=== PATIENT | female | born 1950 | race Caucasian/White ===

== ENCOUNTER → 2019-08-26 | Outpatient (CLI) | payer OTHER, SELFPAY ==
[2019-08-26 09:38] VITALS: BMI 24.7
[2019-08-26 12:38] LABS: Anion Gap 4 (5-15); BUN 17 mg/dL (7-18); BUN/Creat Ratio 19.3 RATIO (10-20); Calcium,Total 9.6 mg/dL (8.5-10.1); Chloride 104 mmol/L (98-107); Creatinine, Serum 0.88 mg/dL (0.55-1.02); EST Glomerular Filtration Rate 68 mL/min (>60); Est Glom Filt Rate - Afr Amer 82 mL/min (>60); Glucose 90 mg/dL (74-106); Potassium 4.8 mmol/L (3.5-5.1); Sodium Level 136 mmol/L (136-145)
[2019-08-26 12:40] LABS: Absolute Lymphocyte Count 1.98 X10^3/uL (0.83-4.51); Absolute Neutrophil Count 3.3 X10^3/uL (2.0-7.7); Basophil# 0.03 X10^3/uL; Basophil% 0.5 % (0-1); Eosinophil# 0.16 X10^3/uL; Eosinophils% 2.7 % (0-5); Hematocrit 36.6 % (37-47); Hemoglobin 11.8 g/dL (12.0-15.0); Lymphocyte # 1.98 X10^3/ul (4.0); Lymphocyte % 32.8 % (19-41); Mean Corp Hgb Conc 32.2 g/dL (32-36); Mean Corpuscular Hgb 29.7 pg (27.0-32.0); Mean Corpuscular Volume 92.2 fL (81-99); Mean Platelet Vol. 9.2 fl (6.2-12.0); Monocyte# 0.55 X10^3/uL; Monocyte% 9.1 % (0-10); NRBC Flagged by Analyzer 0 % (0-5); Neutrophil % 54.7 % (47-70); Platelet Count 280 K/mm3 (150-450); RBC Distribution Width CV 14.3 % (11.6-14.6); RBC Distribution Width SD 48.9 fl (35.1-43.9); Red Blood Count 3.97 M/mm3 (4.2-5.4)
== END | disposition home or self-care (01) ==
LOC: POLAB3 10:23
PROVIDERS: Family Provider Family Medicine; PCP Family Medicine; Visit Provider Physician Assistant Medical
DX: I10 Essential (primary) hypertension (principal); I34.1 Nonrheumatic mitral (valve) prolapse
CPT/HCPCS: 36415; 80048; 85025

== ENCOUNTER → 2019-09-28 10:56 | Outpatient (CLI) | payer SELFPAY, OTHER ==
[2019-08-26 09:38] VITALS: BMI 24.7
--- NOTE | 2019-09-28 10:59 | ECHOD_ITS ---
Reason For Study: MVP Procedure This was a 2D Doppler, Color Flow transthoracic echocardiogram. Exam performed in department. Left Ventricle Normal LV size. Left ventricular systolic function is normal. The estimated ejection fraction is 60 %. Stage 1 diastolic dysfunction. No regional wall motion abnormalities noted. Right Ventricle Normal RV size. Normal systolic function. Atria Normal left atrium. Normal right atrium. Mitral Valve Normal mitral valve. Tricuspid Valve Normal tricuspid valve. Mild (1+) tricuspid valve insufficiency. Pulmonary artery systolic pressure is 27 mmHg. Aortic Valve Trisinus/trileaflet aortic valve. Mild (1+) aortic valve insufficiency. Pulmonic Valve Normal pulmonic valve. Great Vessels Normal aortic root. The pulmonary artery is normal size. Normal inferior vena cava. Pericardium/Pleural No pericardial effusion. MMode/2D Measurements & Calculations LVIDd: 3.8 cm IVSd: 0.81 cm LA dimension: 2.8 cm LVIDs: 2.5 cm LVPWd: 1.1 cm RVDd: 3.8 cm FS: 34.4 % LAV(MOD-bp): 32.4 ml LA A4 area: 13.6 cm2 RA A4 area: 13.5 cm2 LAV(MOD-bp) Indexed: 19.0 ml/m2 LAV(MOD-sp2): 35.4 ml LAV(MOD-sp4): 29.0 ml Time Measurements MV dec time: 0.23 sec Doppler Measurements & Calculations MV E max nuno: 50.7 cm/sec Lat Peak E' Nuno: 8.8 cm/sec Med Peak E' Nuno: 7.7 cm/sec MV A max nuno: 79.8 cm/sec E/E' lat: 5.8 E/E' med: 6.6 MV E/A: 0.64 MV V2 max: 80.9 cm/sec MV P1/2t max nuno: 55.5 cm/sec Ao V2 max: 97.9 cm/sec MV max P.6 mmHg MV P1/2t: 87.1 msec Ao max P.8 mmHg MV V2 mean: 42.5 cm/sec MV dec slope: 186.7 cm/sec2 MV mean P.84 mmHg MVA(P1/2t): 2.5 cm2 MV V2 VTI: 16.8 cm AI max nuno: 410.6 cm/sec LV V1 max: 74.4 cm/sec PA V2 max: 75.1 cm/sec AI max P.5 mmHg LV V1 max P.2 mmHg AI dec slope: 200.8 cm/sec2 AI P1/2t: 598.8 msec TR max nuno: 242.0 cm/sec TR max P.4 mmHg Interpretation Summary Normal LV size. Left ventricular systolic function is normal. The estimated ejection fraction is 60 %. Stage 1 diastolic dysfunction. Normal mitral valve. Mild (1+) tricuspid valve insufficiency. Ordering Physician: Emi Lopez Referring Physician: Emi Lopez Performed By: Andrea Calderón RCS
== END ==
PROVIDERS: Family Provider Family Medicine; PCP Family Medicine; Referring Provider Physician Assistant Medical; Visit Provider Physician Assistant Medical
DX: I10 Essential (primary) hypertension (principal); I34.1 Nonrheumatic mitral (valve) prolapse
CPT/HCPCS: 93306

== ENCOUNTER → 2022-11-15 | Outpatient (CLI) | payer OTHER, SELFPAY ==
[2022-11-21 19:40] LABS: HPV APTIMA, High Risk Negative (Negative)
== END | disposition home or self-care (01) ==
LOC: LABSPEC 13:38
PROVIDERS: PCP Family Medicine; Referring Provider Obstetrics & Gynecology; Visit Provider Obstetrics & Gynecology
DX: Z12.4 Encounter for screening for malignant neoplasm of cervix (principal)
CPT/HCPCS: 87624; 88175; G0145

== ENCOUNTER → 2023-12-26 | Outpatient (CLI) | payer SELFPAY, OTHER ==
--- NOTE | 2023-12-26 09:05 | RAD_ITS ---
HISTORY: PAINFUL RIGHT HIP. TECHNIQUE: XR Hips Bilateral with Pelvis when performed; Min 5 Views. COMPARISON: None. FINDINGS: OSSEOUS STRUCTURES: No acute displaced fracture identified. Note that overlapping bowel shadows may obscure osseous detail. Mineralization unremarkable. JOINT SPACES: No dislocation. Mild degenerative changes of the hips. RAD/Hips B/L min 2 views w/ Pelvis IMPRESSION: No acute displaced fracture or dislocation identified. Electronically Signed: Janeen Sands MD at 9:02 EST ,
--- OUTSIDE RECORDS SUMMARY | 2023-12-26 09:33 | XMS RPT_ITS | CCD ---
Author Name Unknown Address [facility] [address] [place] [id number] Organization [facility] Care Team Providers Care Laboratory Clerk Name Role Phone Devendra Massey MD Unavailable Medications Current Medications Medication Drug Class(es) Dates Sig (Normalized) Sig (Original) aspirin 81 mg delayed release oral tablet (1 source) Platelet Aggregation Inhibitor, Nonsteroidal Anti-inflammatory Drug Start: 11-28-2021 End: 12-28-2021 take 1 tablet by mouth twice daily ASPIRIN EC 81 MG TBEC Take 1 tablet by mouth twice a day as directed aspirin [id number] Devendra Massey MD celecoxib 100 mg oral capsule (2 sources) Nonsteroidal Anti-inflammatory Drug Start: 01-24-2022 End: 02-07-2022 take 1 capsule by mouth twice daily as needed for pain CELECOXIB 100 MG CAPS Take 1 capsule by mouth twice a day as needed for pain celecoxib [id number] Devendra Massey MD Completed/Discontinued Medications Medication Drug Class(es) Dates Sig (Normalized) Sig (Original) losartan potassium 100 mg oral tablet (3 sources) Angiotensin 2 Receptor Clement Start: 01-01-2021 take 1 tablet by mouth once daily LOSARTAN POTASSIUM 100 MG TABS 1 tablet by mouth once a day losartan [id number] Nancy Ramirez AT Problems Active Problems Problem Classification Problem Date Documented Date Episodic/Chronic Complications of surgical procedures or medical care (1 source) Stitch abscess; Translations: [Infection following a procedure, superficial incisional surgical site, initial encounter] Onset: 01-24-2022 01-24-2022 Episodic Osteoarthritis (3 sources) Osteoarthritis of left knee joint; Translations: [Unilateral primary osteoarthritis, left knee] Onset: 01-08-2021 01-08-2021 Chronic Other connective tissue disease (3 sources) History of total knee arthroplasty; Translations: [Presence of left artificial knee joint] Onset: 11-28-2021 11-28-2021 Chronic Past or Other Problems Problem Classification Problem Date Documented Da te Episodic/Chronic Unclassified (3 sources) Problem Results Test Name Value Interpretation Reference Range Facil ity Vital Signs Date Time Vital Sign Value Performing Clinician Facility NEGATED: Highlighted [id number] 15:35-0400 Body height 157.48 cm Nancy Ashley AT [facility] Work Phone: NEGATED: Highlighted [id number] 15:35-0400 Body height 157 cm Nancy Ashley AT [facility] Work Phone: NEGATED: Highlighted [id number] 15:35-0400 Body mass index (BMI) [Ratio] 26.07 kg/m2 Nancy Ashley AT [facility] Work Phone: NEGATED: Highlighted [id number] 15:35-0400 Body weight 64.41 kg Nancy Ashley AT [facility] Work Phone: NEGATED: Highlighted [id number] 15:35-0400 Body weight 65 kg Nancy Ashley AT [facility] Work Phone: NEGATED: Highlighted [id number] 13:00-0400 Body height 157.48 cm Nancy Ashley AT [facility] Work Phone: NEGATED: Highlighted [id number] 13:00-0400 Body height 157 cm Nancy Ashley AT [facility] Work Phone: NEGATED: Highlighted [id number] 13:00-0400 Body mass index (BMI) [Ratio] 26.07 kg/m2 Nancy Ashley AT [facility] Work Phone: NEGATED: Highlighted [id number] 13:00-0400 Body weight 64.41 kg Nancy Ashley AT [facility] Work Phone: NEGATED: Highlighted [id number] 13:00-0400 Body weight 65 kg Nancy Ashley AT [facility] Work Phone: NEGATED: Highlighted [id number] 09:19-0500 Body height 157.48 cm Katina [employer] FI[employer] TECHNICIAN [facility] Work Phone: NEGATED: Highlighted [id number] 09:19-0500 Body height 157 cm Katina [employer] FI[employer] TECHNICIAN [facility] Work Phone: NEGATED: Highlighted [id number] 09:19-0500 Body mass index (BMI) [Ratio] 26.07 kg/m2 Katina [employer] FI[employer] TECHNICIAN [facility] Work Phone: NEGATED: Highlighted [id number] 09:19-0500 Body temperature 98.2 [degF] Katina [employer] FI[employer] TECHNICIAN [facility] Work Phone: NEGATED: Highlighted [id number] 09:19-0500 Body temperature 98.24 [degF] Katina [employer] FI[employer] TECHNICIAN [facility] Work Phone: NEGATED: Highlighted [id number] 09:19-0500 Body weight 64.41 kg Katina [employer] FI[employer] TECHNICIAN [facility] Work Phone: NEGATED: Highlighted [id number] 09:19-0500 Body weight 65 kg Katina [employer] TECHNICIAN [facility] Work Phone: Procedures Date Procedure Procedure Detail Performing Clinician Start: 01-24-2022 End: 01-25-2022 BP scrn no perf at interval Devendra Massey MD Work Phone: Start: 01-24-2022 End: 01-25-2022 Calc BMI abv up tyler f/u Devendra Massey MD Work Phone: Start: 01-24-2022 End: 01-25-2022 Current tobacco non-user cad cap copd pv dm Devendra Massey MD Work Phone: Start: 01-24-2022 End: 01-25-2022 Docrev cur meds by cristi Massey MD Work Phone: Start: 01-24-2022 End: 01-25-2022 Pain neg no plan Devendra Louie Work Phone: Start: 01-24-2022 End: 01-25-2022 Patient encounter procedure Devendra Massey MD Work Phone: Start: 01-07-2022 End: 01-07-2022 BP scrn no perf at interval Devendra Massey MD Work Phone: Start: 01-07-2022 End: 01-07-2022 Calc BMI abv up tyler f/u Devendra Massey MD Work Phone: Start: 01-07-2022 End: 01-07-2022 Current tobacco non-user cad cap copd pv dm Devendra Massey MD Work Phone: Start: 01-07-2022 End: 01-07-2022 Docrev cur meds by cristi Massey MD Work Phone: Start: 01-07-2022 End: 01-07-2022 Pain neg no plan Devendra Louie Work Phone: Start: 01-07-2022 End: 01-07-2022 Patient encounter procedure Devendra Massey MD Work Phone: Start: 12-13-2021 End: 12-19-2021 BP scrn no perf at interval Devendra Massey MD Work Phone: Start: 12-13-2021 End: 12-19-2021 Calc BMI out nrm tyler nof/u Devendra Massey MD Work Phone: Start: 12-13-2021 End: 12-19-2021 Current tobacco non-user cad cap copd pv dm Devendra Massey MD Work Phone: Start: 12-13-2021 End: 12-19-2021 Docrev cur meds by elig clin Devendra Massey MD Work Phone: Start: 12-13-2021 End: 12-19-2021 Patient encounter procedure Devendra Massey MD Work Phone: Start: 12-13-2021 End: 12-19-2021 Pos pain assess no f/u doc Devendra Massey MD Work Phone: Start: 12-13-2021 End: 12-17-2021 Radiologic examination knee 3 views Devendra Massey MD Work Phone: NEGATED: Highlighted rowStart: 01-24-2022 End: 01-24-2022 Documentation of current medications Nancy Ramirez AT NEGATED: Highlighted rowStart: 01-07-2022 End: 01-07-2022 Documentation of current medications Nancy Ramirez AT NEGATED: Highlighted rowStart: 12-13-2021 End: 12-13-2021 Documentation of current medications Katina Waite LPN Plan of Treatment Date Care Activity Detail Author Start: 02-18-2022 End: 02-18-2022 Patient encounter procedure Appointment [facility] Work Phone: Start: 01-31-2022 End: 01-31-2022 Patient encounter procedure Appointment [facility] Work Phone: Start: 01-24-2022 End: 01-24-2022 Radiologic examination knee 3 views XR [id number] [facility] Work Phone: Start: 01-07-2022 End: 01-07-2022 Patient encounter procedure Appointment [facility] Work Phone: Social History Date Type Detail Facility Start: 12-19-2021 End: 01-25-2022 Assertion Unknown if ever smoked [facility] Or [facility] Work Phone: Instructions 01-25-2022 Note Date & Type Note Facility [facility] Work Phone: Instructions 01-07-2022 Note Date & Type Note Facility [facility] Work Phone: Evaluation note Note Date & Type Note Facility Evaluation note There may be informa tion available, but it has not been provided by the sender. [facility] Work Phone: Instructions Note Date & Type Note Facility Instructions No information available. [facility] Work Phone: Chief Complaint Chief Complaint Description Start Date left knee post LEFT TOTAL KN EE ARTHROPLASTY on 11/28/2021 Preliminary chief co mplaint data, not yet signed by the author as of Chief Complaint Description Start Date left knee post LEFT TOTAL KN EE ARTHROPLASTY on 11/28/2021 Preliminary chief co mplaint data, not yet signed by the author as of Chief Complaint Description Start Date left knee post LEFT TOTAL KN EE ARTHROPLASTY on 11/28/2021 Preliminary chief co mplaint data, not yet signed by the author as of Advance Directives There may be information available, but it has not been provided by the sender. There may be information available, but it has not been provided by the sender. There may be information available, but it has not been provided by the sender. Family History There may be information available, but it has not been provided by the sender.There may be information available, but it has not been provided by the sender.There may be information available, but it has not been provided by the sender. Additional Source Comments Reason for Visit (unrecogniz ed section and content) Reason For Visit Description Start Date Postop - subsequent visit Preliminary reason f or visit data, not yet signed by the author as of left knee post LEFT TOTAL KN EE ARTHROPLASTY on 11/28/2021 Reason For Visit Description Start Date Postop - subsequent visit Preliminary reason f or visit data, not yet signed by the author as of left knee post LEFT TOTAL KN EE ARTHROPLASTY on 11/28/2021 FOR RECORDS PERTAINING TO PATIENTS WHO ARE OR HAVE BEEN ENROLLED IN A CHEMICAL DEPENDENCY/SUBSTANCEABUSE PROGRAM, SOME INFORMATION MAY BE OMITTED. This clinical summary was aggregated from multiple sources. Caution should be exercised in using it in the provision of clinical care. This summary normalizes information from multiple sources, and as a consequence, information in this document may materially change the coding, format and clinical context of patient data. In addition, data may be omitted in some cases. CLINICAL DECISIONS SHOULD BE BASED ON THE PRIMARY CLINICAL RECORDS. [employer] provides no warranty or guarantee of the accuracy or completeness of information in this document.
== END | disposition home or self-care (01) ==
LOC: RAD 09:00
PROVIDERS: PCP Family Medicine; Referring Provider Family Medicine; Visit Provider Family Medicine
DX: M25.551 Pain in right hip (principal)
CPT/HCPCS: 73521